=== PATIENT | male | born 1990 | race Caucasian/White ===

== ENCOUNTER 2023-10-25 00:35 | Emergency (ER) | payer BC ==
[2023-10-25] MEDS ORDERED: Sodium Chloride 0.9% 10 ML Syringe FLUSH PRN (01:03)
[2023-10-25] MEDS ORDERED: Metoprolol Tartrate 25 MG Tab PO ONE ×2 (01:14→03:43)
[2023-10-25] MEDS ORDERED: Sodium Chloride 0.9% 1,000 ML IV SCH (01:15)
[2023-10-25 01:29] LABS: HEMATOCRIT 45.1 % (40.0-54.0); HEMOGLOBIN 16.1 g/dL (13.0-18.0); MEAN CORPUSCULAR HEMOGLOBIN 30.1 pg (27.0-32.0); MEAN CORPUSCULAR HGB CONC 35.7 g/dL (31.0-35.0); MEAN PLATELET VOLUME 9.6 fL (6.0-10.0); RED BLOOD CELL COUNT 5.35 M/uL (4.50-6.50); RED CELL DISTRIBUTION WIDTH 12.1 % (11.0-16.0); WHITE BLOOD CELL COUNT,WBC 7.7 K/uL (4.0-11.0)
[2023-10-25] MEDS ORDERED: Metoprolol Tartrate 25 MG Tab ONE ×2 (01:34→03:42)
[2023-10-25 01:47] LABS: A/G RATIO 1.2 (0.8-2.0); ALBUMIN 3.8 g/dL (3.4-5.0); ANION GAP 15.3 mmol/L (5.0-15.0); BILIRUBIN TOTAL 0.8 mg/dL (0.0-1.0); BUN/CREATININE RATIO 12.7 (6-25); CALCIUM 8.2 mg/dL (8.5-10.1); CARBON DIOXIDE,CO2 21.1 mmol/L (21.0-32.0); CREATININE 1.02 mg/dL (0.70-1.30); EST CRCL DRUG DOSING (CG) 101.52 mL/min; MAGNESIUM 1.7 mg/dL (1.8-2.4); POTASSIUM,K 3.4 mmol/L (3.5-5.1); PROTEIN TOTAL,TP 6.9 g/dL (6.4-8.2); TROPONIN I HIGH SENSITIVITY 5.5 pg/ml (<=60.4)
[2023-10-25] MEDS ORDERED: Labetalol 100 MG/20 ML MDV IVPUSH ONE (07:46)
[2023-10-25] MEDS ORDERED: Labetalol 100 MG/20 ML MDV ONE (07:48)
[2023-10-25] MEDS ORDERED: Potassium Chloride Riders 10 MEQ in Premix Bag 1 BAG IV ONE (08:19)
[2023-10-25] MEDS ORDERED: Lisinopril 10 MG Tab PO ONE (08:19)
[2023-10-25] MEDS ORDERED: Potassium Chloride Riders 50 ML ONE (08:27)
[2023-10-25] MEDS ORDERED: Potassium Chloride Riders 50 ML IV ONE (08:39)
[2023-10-25] MEDS ORDERED: Sodium Chloride 0.9% 500 ML IV ONE (08:40)
[2023-10-25] MEDS ORDERED: Ibuprofen 200 MG Tab ONE (10:40)
[2023-10-25] MEDS ORDERED: Ibuprofen 200 MG Tab PO ONE (10:41)
== END 2023-10-25 11:07 | disposition home or self-care (01) ==
LOC: LB.ED 00:35
DX: I10 Essential (primary) hypertension (principal); E66.3 Overweight; Z68.33 Body mass index [BMI] 33.0-33.9, adult
CPT/HCPCS: 36415; 80053; 83735; 84443; 84484; 85027; 85379; 93005; 93010; 96361; 96365; 96367; 96375; 99283; 99285; A9270; J1921; J3475; J3480; J7030; J7040